=== PATIENT | female | born 1945 | race Caucasian/White ===

== ENCOUNTER 2019-04-26 08:57 | Day surgery (SDC) | payer MEDICARE ==
[~2019-04-26] VITALS: Ht 166.4 cm; Wt 83.4 kg
[2019-04-26 10:25] VITALS: BP 110/55
[2019-04-26 10:30] VITALS: BP 118/72
[2019-04-26 10:37] VITALS: BP 113/68
--- NOTE | 2019-04-26 11:30 | NUR ---
Cholecystectomy Addendum: 04/26/19 at 1141 by Liz Cancino STUDENT FELIBERTO Amended: Links added.
--- NOTE | 2019-04-26 11:32 | NUR ---
Partial thyroidectomy Addendum: 04/26/19 at 1141 by Liz Cacnino STUDENT FELIBERTO Amended: Links added.
== END 2019-04-26 11:50 | disposition home or self-care (01) ==
LOC: SSTAY O 08:57
PROVIDERS: ATTEND Radiology Diagnostic Radiology
DX: J90 Pleural effusion, not elsewhere classified (principal); F32.9 Major depressive disorder, single episode, unspecified; I10 Essential (primary) hypertension; E03.9 Hypothyroidism, unspecified; E11.40 Type 2 diabetes mellitus with diabetic neuropathy, unspecified; Z96.653 Presence of artificial knee joint, bilateral; Z85.3 Personal history of malignant neoplasm of breast; Z90.710 Acquired absence of both cervix and uterus; Z90.49 Acquired absence of other specified parts of digestive tract
CPT/HCPCS: 32555; 71045; 88108; 88305; 88341; 88342

== ENCOUNTER 2019-05-22 07:42 | Day surgery (SDC) | payer MEDICARE ==
[2019-05-22] VITALS (11 sets, daily range): BP systolic 113–152; BP diastolic 61–75
[~2019-05-22] VITALS: Ht 170.2 cm; Wt 82.1 kg
[2019-05-22] MEDS ORDERED: cefazolin/dext.iso 2gm/50ml 50 ML IV ONE (08:15)
[2019-05-22] MEDS ORDERED: normal saline 1000ml 1,000 ML IV PRN (08:15)
[2019-05-22] MEDS ORDERED: LIOT5TAB14 (08:28)
[2019-05-22] MEDS ORDERED: DICY20TA17 PO (08:28)
[2019-05-22] MEDS ORDERED: SUCR1ORA12 PO (08:28)
[2019-05-22] MEDS ORDERED: ARIP5TAB14 PO (08:28)
[2019-05-22] MEDS ORDERED: XELODA (08:28)
[2019-05-22] MEDS ORDERED: DICY10CA88 PO (08:28)
[2019-05-22] MEDS ORDERED: METH4TAB3 PO (08:28)
[2019-05-22] MEDS ORDERED: LEVO25TA2 PO (08:28)
[2019-05-22] MEDS ORDERED: METF-436 PO (08:28)
[2019-05-22] MEDS ORDERED: MSC15T PO (08:28)
[2019-05-22] MEDS ORDERED: OMEP20TA23 PO (08:28)
[2019-05-22] MEDS ORDERED: LORA-269 PO (08:28)
[2019-05-22] MEDS ORDERED: TRIA1TAB3 PO (08:28)
[2019-05-22] MEDS ORDERED: DULO60CA45 PO (08:28)
[2019-05-22] MEDS ORDERED: SUMA50TA PO (08:28)
[2019-05-22] MEDS ORDERED: OXYC30TA85 PO (08:28)
== END 2019-05-22 09:50 | disposition home or self-care (01) ==
LOC: SSTAY O 07:42
PROVIDERS: ATTEND Radiology Vascular & Interventional Radiology
DX: J90 Pleural effusion, not elsewhere classified (principal); J98.11 Atelectasis; F32.9 Major depressive disorder, single episode, unspecified; K21.9 Gastro-esophageal reflux disease without esophagitis; I10 Essential (primary) hypertension; E11.40 Type 2 diabetes mellitus with diabetic neuropathy, unspecified; E03.9 Hypothyroidism, unspecified; Z85.3 Personal history of malignant neoplasm of breast; Z90.710 Acquired absence of both cervix and uterus; Z90.49 Acquired absence of other specified parts of digestive tract; Z96.653 Presence of artificial knee joint, bilateral; Z88.1 Allergy status to other antibiotic agents; Z88.8 Allergy status to other drugs, medicaments and biological substances
CPT/HCPCS: 32555; 71045; J7030; C1729